=== PATIENT | female | born 1955 | race Caucasian/White ===

== ENCOUNTER 2025-02-26 12:04 | Inpatient (IN) | payer MEDICARE, OTHER, SELFPAY ==
[2025-02-26] VITALS (15 sets, daily range): BP systolic 92–139; BP diastolic 58–117; BMI 25.1
--- NOTE | 2025-02-26 08:26 | ED.GENMED ---
History of Present Illness
General
Chief Complaint: Abdominal Symptoms
Source: patient
Exam Limitations: none
Time Seen by Provider: 02/26/25 08:10
History of Present Illness
History of Present Illness:
See MDM
Past History
Past History
ED Past Medical History: HTN, Psychiatric (PTSD) and Other (RSD, chronic pain syndrome-narcotic dependant)
ED Past Surgical History: Orthopedic and Other (cataract b/l)
Social History
Tobacco: Former smoker (quit 36 years ago)
Personal:
Living: with family
Employment: Disabled
Family History
Family History: CAD; Negative Early CAD or Sudden
Phy Exam
Physical Exam
Physical Exam:
See MDM
Course
Orders/Labs/Results
Orders:
Orders
02/26/25 08:10
Electrocardiogram (*1) Urgent
Reason for Study: Tachycardia
EKG- Treatment ONCE
02/26/25 08:12
Complete Blood Count/With Diff Urgent
Comprehensive Metabolic Panel Urgent
02/26/25 08:24
0.9% Sodium Chloride 1000 ml [Nss] 1,000 ml IV BOLUS
HYDROmorphone [Dilaudid] 1 mg IV NOW STA
Ondansetron Injectable [Zofran] 4 mg IV NOW STA
02/26/25 08:32
CT Pe/abd/pel W Urgent
Reason For Exam: SOB, hypoxic, recent surgery, order combined
Ketorolac [Toradol] 30 mg IV NOW STA
02/26/25 08:34
Ketorolac [Toradol] 15 mg .ROUTE .STK-MED ONE
02/26/25 08:43
EKG- Treatment ONCE
02/26/25 09:11
NT-proBNP Urgent
Troponin I Urgent
02/26/25 10:22
Piperacillin/Tazo 3.375 Gram [Zosyn] 3.375 gram in 50 ml IV NOW
02/26/25 10:23
0.9% Sodium Chloride 1000 ml [Nss] 1,000 ml IV BOLUS
Vancomycin [Vancocin] 1,500 mg 0.9% Sodium Chloride 500 ml [Nss] 500 ml IV NOW
02/26/25 10:30
Blood Culture Q30M
ADRIANA Source: Blood/Venous
Specimen Description:
02/26/25 11:00
Blood Culture Q30M
ADRIANA Source: Blood/Venous
Specimen Description:
Abnormal Lab Results
02/26/25
08:12
RDW 15.3 H %
(11.5-14.5)
MPV 10.7 H fL
(7.4-10.4)
BUN 28 H mg/dl
(7-17)
Glucose 119 H mg/dl
(70-99)
AST 66 H U/L
(14-36)
ALT 64 H U/L
(0-35)
Alkaline Phosphatase 137 H U/L
(38-126)
02/26/25 08:12
02/26/25 08:12
Vital Signs
Initial and Last Documented VS:
Initial Vital Signs
Temp Pulse Resp BP Pulse Ox
99.9 F 148 25 113/78 86
02/26/25 08:06 02/26/25 08:06 02/26/25 08:06 02/26/25 08:06 02/26/25 08:06
Last Documented Vital Signs
Temp Pulse Resp BP Pulse Ox
99.9 F 148 25 113/78 90
02/26/25 08:06 02/26/25 08:06 02/26/25 08:06 02/26/25 08:06 02/26/25 08:14
MDM/Problems Addressed
Differential Diagnosis Includes:
HPI and MDM Narrative:
69-year-old female presenting for evaluation of abdominal pain. Patient points to left upper abdominal pain. This is associated with diarrhea. Patient had recent spinal surgery and presents to the emergency department in a cervical collar. From
a surgical standpoint, patient is unconcerned. She states the surgical incisions are healing well and pain is controlled with oxycodone. She has been taking stool softeners but denies taking laxatives. On arrival, patient had soft liquidy stool.
Patient is clinically dry. She is asking for water. Will provide IV fluids and give water. Will control pain and obtain CT abdomen/pelvis but I have a strong suspicion this could be constipated related
Physical exam
General: Mildly uncomfortable
HEENT: protecting airway. Dry mucous membranes
Neck: appears supple
CV: No evidence of cyanosis. Tachycardic
Resp: No accessory muscle use
Abd: Non-distended. Mild left upper abdominal pain without rebound
Extremities: No deformities
Neuro: alert
Psych: Anxious
Skin: Intact
Problems Addressed including Acute and Chronic Conditions affecting care:
1. Abdominal pain
Acuity: acute
Prognosis: stable
Details: Given recent surgery and being on narcotics, I have a strong suspicion for constipation. Will obtain CT
2. Dehydration
Acuity: acute
Prognosis: stable
Details: Will give IV fluids. This is likely the reasoning for the tachycardia. Will continue to monitor
3. Hypoxic
Acuity: acute
Prognosis: unstable
Details: Given recent surgery, will obtain CT to rule out PE
4. Multilobar pneumonia
Acuity: acute
Prognosis: unstable
Details: IV antibiotics started
Updates
CT shows significant pneumonia. Given the hypoxia, will start IV antibiotics and admit. No evidence of PE. The abdominal pain is likely explained by diaphragmatic irritation from the pneumonia and evidence of constipation as well
Differential Diagnosis (but not limited to): Constipation, dehydration, colitis
Testing considered: Urinalysis but she denies urinary symptoms
Drug therapy (if applicable): OTC meds, please see d/c instruction regarding Rx drugs
Amount and/or Complexity of Data Reviewed
Clinical info obtained from: Patient
External data reviewed: N/A
Labs I independently reviewed (but not limited to): White blood cell count normal, trop normal
Radiology: The CT scan was personally and independently reviewed. In addition, official CT report reviewed.
Pulse Ox: not hypoxic
EKG independently reviewed: Sinus tachycardia, left axis, no STEMI
Retail Assistant:Sinus tachycardia
Critical Care: The high probability of a clinically significant, sudden or life threatening deterioration of the cardiopulmonary system(s) required my full and direct attention, intervention and personal management. The aggregate critical care time
was 33 minutes. This time is in addition to time spent performing reported procedures but includes the following:
[x] Data Review and interpretation
[x] Patient assessment and monitoring of vital signs
[x] Documentation
[x] Medication orders and management
Risk of Complication:
Social Determinants of health: Good social support
Discussed with other providers: Hospitalist
Escalation of Care includes Admit/Obs: Given the multilobar pneumonia with hypoxia, will admit on antibiotics
Occasional wrong word or 'sound a like' substitutions may have occurred due to the inherent limitations of voice recognition software. Read the chart carefully and recognize, using context, where substitutions have occurred.
*Critical Care Note
Total Time (30-74mins, 75-104mins- exclusive of procedures): 33 min
ED Attending Note
-
Portions of this chart may have been created with voice recognition software.� Occasional wrong word or��sound alike� substitutions may have occurred due to the inherent limitations of voice recognition software.
Discharge Plan
Departure
Patient Disposition: Admit
Date of Disposition: 02/26/25
Time of Disposition: 10:30
Admit to: Telemetry
Presentation/result/management discussed w/ accepting MD/DO: Hospitalist
Discharge Problem:
PNA (pneumonia), Hypoxia
Prescriptions:
No Action
levothyroxine 175 MCG tablet
175 mcg PO DAILY
meloxicam 15 MG tablet
15 mg PO DAILY
temazepam 15 MG capsule
15 mg PO DAILY
morphine 30 MG tablet
30 mg PO [id number] PRN (Reason: pain)
buspirone 10 MG tablet
30 mg PO BID
lisinopril 10 MG tablet
10 mg PO DAILY
lidocaine 1 PATCH adhesive patch,medicated
1 patch topical DAILY
venlafaxine 50 MG tablet
187.5 mg PO DAILY
zaleplon [Sonata] 10 MG capsule
10 mg PO HS
lorazepam 1 MG tablet
1 mg PO TID
morphine 15 MG tablet
15 mg PO PRN PRN (Reason: pain)
topiramate 100 MG tablet
250 mg PO HS
lamotrigine 100 MG tablet
300 mg PO HS
lamotrigine 100 MG tablet
200 mg PO DAILY
diazepam 5 MG tablet
10 mg PO DAILY
metaxalone [Skelaxin] 800 MG tablet
800 mg PO Q8H
qsbevkcf-qfl-aqif-FA-vit K-lut [Centrum Silver Women] 1 EACH tablet
1 tab PO DAILY
calcium phosphate-vitamin D3 [Citracal-D3 Gummies] 1 EACH tablet,chewable
630 mg PO BID
Referrals:
Darren Ferrell MD [Family Provider] -
Interventions
Interventions:
*Risk Screen - Suicide Last Done: 02/26/25 08:06
*Neglect/Abuse Screening Last Done: 02/26/25 08:06
*ED- Fall Risk Assessment Last Done: 02/26/25 08:06
*ED COVID-19 Vaccine History Last Done: 02/26/25 08:06
SW-Jpbume-Cwvlkukmqa Assessment Last Done: 02/26/25 08:23
Discharge Date and Time
Print Language: INDIAN
[2025-02-26] MEDS: NSS 1000 IV ×2 (08:30→11:00)
[2025-02-26] MEDS: ZOFRAN 4 MG IV (08:30)
[2025-02-26] MEDS: TORADOL 30 MG IV (08:36)
[2025-02-26 08:45] LABS: ALT (SGPT) 64 U/L (0-35); AST (SGOT) 66 U/L (14-36); Alkaline Phosphatase 137 U/L (38-126); Blood Urea Nitrogen 28 mg/dl (7-17); Calcium 9.4 mg/dl (8.4-10.2); Carbon Dioxide 23 mmol/L (22-30); Chloride 101 mmol/L (98-107); Glucose 119 mg/dl (70-99); Potassium 3.9 mmol/L (3.5-5.1); Sodium 138 mmol/L (135-145); Total Bilirubin 1.2 mg/dl (0.2-1.3); Total Protein 6.7 g/dl (6.3-8.2); eGFR > 60.00
[2025-02-26 08:57] LABS: Mean Corp Hgb Conc. 33.3 g/dL (33.0-37.0); Mean Corpuscular Hgb 29.2 pg (27.0-31.0); Mean Corpuscular Volume 87.7 fL (81.0-99.0); Mean Platelet Volume 10.7 fL (7.4-10.4); Platelet Count 289 10^3/uL (130-400); Red Blood Cell Count 5.13 10^6/uL (4.20-5.40); Red Cell Dist. Width 15.3 % (11.5-14.5); White Blood Cell Count 9.8 10^3/uL (4.8-10.8)
[2025-02-26 09:52] LABS: NT-proBNP 131 pg/ml; Troponin I 0.029 ng/ml
[2025-02-26 10:39] LABS: Absolute Neutrophils -Man Diff 8.9 10^3/uL (1.4-6.5); Band Neutrophils 17 % (0-3); Lymphocytes 3 % (20-51); Monocytes 6 % (2-9); Normal RBC Morphology Yes; Platelets Checked Yes; Segmented Neutrophils 74 % (42-75)
[2025-02-26 10:40] LABS: Total Cells Counted 100
[2025-02-26] MEDS: ZOSYN 50 IV (11:00)
[2025-02-26] MEDS: VANCOCIN 530 MG IV (11:00)
--- NOTE | 2025-02-26 11:38 | HPS.HSE ---
Family Physician
-
Family Physician: Darren Ferrell
Chief Complaint
-
Abdominal pain, shortness of breath
History of Present Illness
69-year-old female here complaining of shortness of breath and abdominal pain. She is a very poor and tangential historian. She requires a lot of redirecting to stay on track.
States that shortness of breath started yesterday. Reportedly passed out in the ambulance ride to the hospital today. Has had a cough but cannot come into detail about duration or severity. It is not productive.
Had spinal surgery in January at the [facility], and presents with a cervical collar.
Had pneumonia last year. States she was asymptomatic at the time.
Medical History
Past Medical History
Past Medical History: Reports Other
Additional Past Medical History:
Spinal degeneration
hypothyroidism
PTSD
RSD
Essential hypertension
Past Surgical History: Reports Orthopedic and Other (Cataracts)
Social History
Tobacco: Former Smoker
Alcohol: None
Drug: None
Personal:
Living: With Family
Family History
Family History: Not pertinent
Allergies / Home Medications
Allergies reflects when Allergies were last updated in [employer].
Home Medications with original date entered in [employer]
Allergy/Medication List:
Allergies
Allergy/AdvReac Type Severity Reaction Status Date / Time
gabapentin [From Neurontin] Allergy Tongue Verified 06/16/15 23:46
Swelling
pregabalin [From Lyrica] Allergy Tongue Verified 06/16/15 23:46
Swelling
Home Medications
lamotrigine 150 mg tablet (Lamictal) 150 mg PO DAILY 02/26/25
levothyroxine 75 mcg tablet (Synthroid) 75 mcg PO DAILY 02/26/25
lidocaine 5 % topical patch 1 patch topical DAILYPRN PRN 1 ON EACH SHOULDER CLOSE TO NECK 02/26/25
nortriptyline 10 mg capsule 60 mg PO HS 02/26/25
oxycodone 10 mg tablet 10 mg PO Q6HPRN PRN SEVERE PAINS 02/26/25
polyethylene glycol 3350 17 gram oral powder packet (Miralax) 17 g PO DAILYPRN PRN CONSTIPATION 02/26/25
prednisone 10 mg tablets in a dose pack 10 mg PO DIRECTED 02/26/25
rosuvastatin 10 mg tablet (Crestor) 10 mg PO DAILY 02/26/25
sennosides 8.6 mg tablet (senna) 8.6 mg PO BID 02/26/25
tirzepatide (weight loss) 5 mg/0.5 mL subcutaneous pen injector (Zepbound) 5 mg SC MO 02/26/25
tizanidine 2 mg tablet 2 mg PO Q8HPRN PRN SPASMS 02/26/25
venlafaxine 150 mg capsule,extended release 24 hr (Effexor XR) 150 mg PO DAILY 02/26/25
venlafaxine 75 mg capsule,extended release 24 hr (Effexor XR) 75 mg PO DAILY 02/26/25
Review of Systems
-
History Source: Patient
A 12 point ROS was completed and negative except as noted: Yes
Physical Exam
Vital Signs
Vital Signs
Temp Pulse Resp BP Pulse Ox
99.9 F 107 20 115/70 97
02/26/25 08:06 02/26/25 11:30 02/26/25 11:30 02/26/25 11:00 02/26/25 11:30
Physical Exam
General: Well Developed, Well Nourished, No Apparent Distress and Comfortable
HEENT: NormoCephalic and Anicteric; No Moist mucous membranes
Respiratory: Clear
Cardiac: S1/S2 and Regular Rhythm
Breast: Deferred by me
GI: Soft, Non Tender and Non Distended
Genito-urinary: Deferred by me
Musculoskeletal: No Clubbing, No Cyanosis and No Edema
Skin: Warm and Dry
Neuro: AO x 3
Hematologic/Lymphatic: No Lymphadenopathy
Psych: Calm
Laboratory Results
-
02/26/25 08:12
02/26/25 08:12
Laboratory Results
Total Bilirubin 1.2 mg/dl (0.2-1.3) 02/26/25 08:12
AST 66 U/L (14-36) H 02/26/25 08:12
ALT 64 U/L (0-35) H 02/26/25 08:12
Alkaline Phosphatase 137 U/L (38-126) H 02/26/25 08:12
Troponin I 0.029 ng/ml 02/26/25 09:11
Impression/Plan
-
Acute hypoxic respiratory insufficiency -due to multifocal pneumonia. Pulse ox 86% on room air, improved to 97% on 4 L.
Sepsis due to community-acquired pneumonia -multifocal on CT. Left lower lobe and right upper lobe infiltrates noted. Bandemia noted with tachycardia.
Admit to the hospital, IV antibiotics. Check urinary antigens. Blood cultures sent.
Incentive spirometry.
Elevated liver enzymes -suspect due to pneumonia.
Hypothyroidism -continue levothyroxine.
PTSD
Full code
--- NOTE | 2025-02-26 15:57 | PTCARENOTE ---
pt presents from ED via stretcher. pt is AAO*3, Vss, 4L o2 97%. pt c/o pain at the surgical site and chest and back with breathing. pt on pain meds as needed. pt oriented to the room. call negrete within the reach. plan of care ongoing.
[2025-02-26] MEDS: ROXICODONE 15 MG PO (16:32)
[2025-02-26] MEDS: MIRALAX 17 GRAMS PO (16:32)
[2025-02-26] MEDS: LOVENOX 40 MG SC (16:33)
[2025-02-26] MEDS: ZITHROMAX 500 MG PO (16:33)
[2025-02-26] MEDS: ROCEPHIN 1000 MG IV (16:33)
[2025-02-26] MEDS: STERILE WATER FOR INJECTION 10 ML IV (16:33)
--- NOTE | 2025-02-26 17:35 | PTCARENOTE ---
pt states choking on fresh fruit and toast. pt stopped eating. pt states she has a hx of dysphagia with no specific diet she follows at home. pt will opt in for clear for now. made aware.
[2025-02-26] MEDS: ZANAFLEX 2 MG PO (19:48)
[2025-02-26] MEDS: SENOKOT 8.6 MG PO (19:48)
[2025-02-26] MEDS: PAMELOR 60 MG PO (20:50)
[2025-02-27] MEDS: ROXICODONE 15 MG PO ×2 (00:45→12:18)
[2025-02-27 03:39] VITALS: BP 110/62
[2025-02-27] MEDS: ZANAFLEX 2 MG PO (03:56)
[2025-02-27] MEDS: SYNTHROID 75 MCG PO (05:27)
[2025-02-27 07:40] VITALS: BP 119/72
[2025-02-27 08:35] VITALS: BP 121/77; PULSE 104; O2SAT 92
[2025-02-27 08:56] VITALS: BP 121/77; O2SAT 93
[2025-02-27 09:04] LABS: ALT (SGPT) 34 U/L (0-35); AST (SGOT) 24 U/L (14-36); Albumin 2.7 g/dl (3.5-5.0); Alkaline Phosphatase 111 U/L (38-126); Blood Urea Nitrogen 11 mg/dl (7-17); Calcium 8.4 mg/dl (8.4-10.2); Carbon Dioxide 26 mmol/L (22-30); Chloride 104 mmol/L (98-107); Estimated Creatinine Clearance 76 ml/min; Glucose 90 mg/dl (70-99); Potassium 4.2 mmol/L (3.5-5.1); Sodium 137 mmol/L (135-145); Total Bilirubin 0.7 mg/dl (0.2-1.3); Total Protein 5.1 g/dl (6.3-8.2); eGFR > 60.00
[2025-02-27] MEDS: EFFEXOR XR 150 MG PO (09:55)
[2025-02-27] MEDS: MIRALAX 17 GRAMS PO (09:55)
[2025-02-27] MEDS: LAMICTAL 150 MG PO (09:55)
[2025-02-27] MEDS: ZITHROMAX 500 MG PO (09:55)
[2025-02-27] MEDS: CRESTOR 10 MG PO (09:55)
[2025-02-27] MEDS: EFFEXOR XR 75 MG PO (09:55)
[2025-02-27] MEDS: SENOKOT 8.6 MG PO (09:55)
--- NOTE | 2025-02-27 10:24 | PTOTSP ---
Speech Therapy Evaluation:
Pt presents with signs concerning for pharyngeal dysphagia as demonstrated by multiple swallows per bolus with sensation of food feeling 'stuck.' Additionally, RN note reported choking on fresh fruit and toast. Pt reported hx of dysphagia and
received a VSE ~3 years ago with recommendations for moist purees and thin liquids due to moderate residue. Currently, she feels as if her throat is inflamed and endorses occasional 'hacking' on food. Pt also reported hx of R vocal fold paralysis,
'vagal nerve issues,' and laryngospasm. Pt has a hx of PNA and is currently admitted with PNA (however suspected to be community acquired). Given report of R vocal fold paralysis, vagal nerve issues, hx of/current PNA, reported dysphagia, and
reported VSE/diet modifications in the past, recommend instrumental assessment to further assess oropharyngeal swallow function. Pt declined diet downgrade to pureed foods, however in verbal agreement for VSE.
Recommend:
1. IDDSI Level 6 (soft and bite sized solids) and thin liquids with softer selections
2. Medications as tolerated
3. Partial supervision
4. Alternate solids/liquids; multiple swallows per bolus; small bites/sips; slow rate
5. VSE to further assess oropharyngeal swallow function
6. COMPONENT ASSEMBLER to follow pending results of VSE
--- NOTE | 2025-02-27 10:50 | CM ---
Addendum entered by Roxana Markham 02/27/25 14:48:
Patient is stable for d/c today. Home O2 assessment completed, patient does not require any O2 and remains on room air
Updated spouse who will be able to pick patient up this afternoon
IMM verbally reviewed, patient given copy, copy placed on chart
Original Note:
Initial assessment completed. Per chart, patient is a poor and tangential historian. Patient is a 69-year-old female here complaining of shortness of breath and abdominal pain. CM spoke w/ patient's spouse for information.
Patient resides w/ spouse in a 2 story split level home- no steps to enter, 16 steps to bedroom. Patient is independent w/ ambulating, no device required. Independent w/ ADLs. Patient has RWs, WC and shower chair in the home that she uses when
needed. Spouse denies SNF hx for patient. Patient is current w/ home PT/OT/VN that was arranged by [facility]. Spouse not sure if provider is [place] at home. Patient had OP therapy in the past after lower back surgery in August.
Address, point of contact and insurance verified
PCP: Darren Ferrell
Pharmacy: [facility]
PT/OT assessed- likely no needs
Plan: Home; no needs likely
--- NOTE | 2025-02-27 11:11 | W.PN.HOSP.TC ---
Addendum entered and electronically signed by Lyle Vallejo DO 02/27/25 14:30:
Ambulatory pulse ox checked on room air. 100% at rest, 94 to 96% with ambulation greater than 100 feet. No need for home oxygen. Stable for discharge.
Addendum entered and electronically signed by Lyle Vallejo DO 02/27/25 13:13:
No aspiration observed on video swallowing study today. Speech therapy recommends continuing current diet of soft and bite-size food, thin liquids.
Stable for discharge home this afternoon after home oxygen arrangements made.
Follow-up as an outpatient.
Original Note:
Today's Communication/Plan
-
Video swallowing study
Arrange for home oxygen
Possible discharge
Assessment / Plan
Assessment / Plan
Gen-AAOx3, NAD
HEENT-NC, AT, anicteric, clear oral mm
Neck-supple
CV-reg, no M, +S1/S2
Lungs-rales in upper lobes
Abd-soft, NT, ND
Ext-no edema
Musculoskeletal-no cyanosis, clubbing
Skin-warm and dry
Neuro-grossly non-focal
Psych-calm, cooperative
Acute encephalopathy due to hypoxia -present on admission but resolved. Patient reportedly was very confused at home prior to admission, likely due to hypoxia.
Acute hypoxic respiratory insufficiency -due to chronic aspiration pneumonitis.
Patient is in need of oxygen on exertion due to pulse oximetry of 93% on room air at rest; 87% on room air with exertion.
Patient was placed on 2L O2 via nasal cannula with saturation of 95%. Oxygen will help to improve hypoxemia.
Patient is mobile within the home. Albuterol therapy has been discussed and is ineffective in treating hypoxemia-related symptoms.
Oxygen will improve the patient's symptoms.
Sepsis due to aspiration pneumonia -multifocal on CT. Left lower lobe and right upper lobe infiltrates noted. Bandemia noted with tachycardia. Sepsis resolved.
Blood cultures negative. Urinary antigens negative.
Suspect she also has component of chronic aspiration pneumonitis given chronic dysphagia. Also has right vocal cord paralysis noted previously as per patient.
Can change to Augmentin on discharge.
Chronic dysphagia -speech therapy input noted. Awaiting video swallowing study. Will need ongoing follow-up after discharge.
Elevated liver enzymes -suspect due to pneumonia. Improved.
Hypothyroidism -continue levothyroxine.
PTSD
Full code
Dispo -possible discharge later today if home oxygen can be arranged. Discussed with case management. Close outpatient follow-up.
Anticipated Discharge: Today
Subjective/Interval History
-
Date of Service: February 27, 2025
Patient seen and examined. No new complaints.
Objective Data
-
Labs:
Laboratory Results
02/27/25
07:04
Sodium 137
Potassium 4.2
Chloride 104
Carbon Dioxide 26
BUN 11
Creatinine 0.6
Glucose 90
Calcium 8.4
Total Bilirubin 0.7
AST 24
ALT 34
Alkaline Phosphatase 111
Vital Signs:
Vital Signs
Temp Pulse Resp BP Pulse Ox
98.5 F 96 18 119/72 95
02/27/25 07:40 02/27/25 07:40 02/27/25 07:40 02/27/25 07:40 02/27/25 07:40
I&O
02/26/25 02/27/25 02/28/25
06:59 06:59 06:59
Intake Total 480 / 480
Output Total 200 / 200
Balance 280 / 280
Review of Systems
-
History Source: Patient
All other systems: Reviewed and negative
[2025-02-27 11:25] VITALS: BP 115/76
--- NOTE | 2025-02-27 12:36 | PTCARENOTE ---
Patient ambulating in room and out to hallway with supervision. Patient's gait is steady just a tad weak. Cervical collar on 07/06. Patient states, 'I am allowed to remove it when I am lying down for a rest.' Patient tolerating bite sized food for
lunch, not s/s of aspiration at present. Patient c/o neck pain 05/24. Roxicodone given with good relief, patient fell asleep for an hour.
--- NOTE | 2025-02-27 13:50 | PTOTSP ---
Speech Therapy Video Swallow Study:
Patient presents with mild oropharyngeal dysphagia. Trace transient upper laryngeal penetration observed with thin liquids via tsp in 1/2 trials (normal). No aspiration visualized during study. Mild pharyngeal residue across consistencies that did
not worsen as trials progressed. Liquid wash assisted at clearing residue with solids. Please see patient care note for full details of penetration and swallowing physiology.
Recommend:
1.IDDSI Level 6 (soft and bite sized solids) and thin liquids with softer selections per patient preference
2.Medications as tolerated
3.Strategies: Alternate solids/liquids; small bites/sips; slow rate; double swallows as needed
4.BROADCAST CHIEF ENGINEER to follow to educate patient on results of VSE, provide education in compensations, and trial advanced solids at bedside.
--- NOTE | 2025-02-27 14:29 | RESPNOTE ---
Ambulatory pulse oximetry procedure done with the patient for Home oxygen necessity. Patient is having very thick artificial nails which doesn't read any pulse oximetry machines accurately. So the pulse ox was put on the ear lobe to read properly
with skin contact to read accurately. Patient was 97% on room air and while ambulating it varied from 97%-94%.
--- NOTE | 2025-02-27 14:30 | W.DS.TRANS ---
DC Summary - Reproducer
-
Discharge Instructions:
Discharge Diagnosis/Procedures Aspiration pneumonia, chronic dysphagia
Diet Other diet
Additional Diets Soft, bite-size diet
Activity As tolerated
Driving Restrictions As prior to admission
Bathing Restrictions None
Other Services ST
Instructions:
Stand-Alone Forms:
Changes to Home Medications: No
Discharge Medications:
DC Medications w/original date entered in [facility]
lamotrigine 150 mg tablet (Lamictal) 150 mg PO DAILY 02/26/25
levothyroxine 75 mcg tablet (Synthroid) 75 mcg PO DAILY 02/26/25
lidocaine 5 % topical patch 1 patch topical DAILYPRN PRN 1 ON EACH SHOULDER CLOSE TO NECK 02/26/25
lorazepam 2 mg tablet (Ativan) 2 mg PO HS PRN sleep 02/26/25
nortriptyline 10 mg capsule 60 mg PO HS 02/26/25
oxycodone 10 mg tablet 15 mg PO Q6HPRN PRN SEVERE PAINS 02/26/25
polyethylene glycol 3350 17 gram oral powder packet (Miralax) 17 g PO DAILYPRN PRN CONSTIPATION 02/26/25
rosuvastatin 10 mg tablet (Crestor) 10 mg PO DAILY 02/26/25
sennosides 8.6 mg tablet (senna) 8.6 mg PO BID 02/26/25
tirzepatide (weight loss) 5 mg/0.5 mL subcutaneous pen injector (Zepbound) 5 mg SC MO 02/26/25
tizanidine 2 mg tablet 2 mg PO Q8HPRN PRN SPASMS 02/26/25
venlafaxine 150 mg capsule,extended release 24 hr (Effexor XR) 150 mg PO DAILY 02/26/25
venlafaxine 75 mg capsule,extended release 24 hr (Effexor XR) 75 mg PO DAILY 02/26/25
amoxicillin 875 mg-potassium clavulanate 125 mg tablet 1 tab PO BID #14 tabs 02/27/25
Home Medication Changes
Pending Results: No
--- NOTE | 2025-02-27 15:21 | PTCARENOTE ---
Spoke with patient's spouse (Darinel) and reviewed discharge instruction, speech eval.
[2025-02-27 15:49] VITALS: BP 137/91
== END 2025-02-27 16:08 | disposition home or self-care (01) | DRG 871 ==
LOC: 4 EAST ACU 12:04
PROVIDERS: ADMITTING PHYSICIAN Hospitalist; EMERGENCY PHYSICIAN Student in an Organized Health Care Education/Training Program; FAMILY PHYSICIAN Internal Medicine
DX: A41.9 Sepsis, unspecified organism (principal); J18.9 Pneumonia, unspecified organism; J69.0 Pneumonitis due to inhalation of food and vomit; Z87.891 Personal history of nicotine dependence; R09.02 Hypoxemia; E03.9 Hypothyroidism, unspecified
CPT/HCPCS: 71275; 74177; 74230; 80053; 83880; 84484; 85025; 87040; 87449; 87899; 92610; 92611; 93005; 96365; 96375; 97162; 97166; 99291; Q9967